=== PATIENT | female | born 1955 | race Caucasian/White ===

== ENCOUNTER 2017-10-25 15:39 | Inpatient (IN) | payer MEDICAID ==
[~2017-10-25] VITALS: Ht 157.5 cm; Wt 52.0 kg
[2017-10-25 17:03] LABS: Basophils # (auto) 0.1 uL; Basophils % (auto) 0.8 % (0.0-2.0); Eosinophils # (auto) 0 uL; Eosinophils % (auto) 0.3 % (0.0-7.0); Hematocrit 44.1 % (36.0-46.0); Hemoglobin 14.5 g/dL (12.2-16.2); Lymphocytes # (auto) 1.7 uL; Mean Corpuscular Hemoglobin 29.3 pg (28.0-32.0); Mean Corpuscular Hgb Conc. 32.9 g/dL (32.0-36.0); Mean Corpuscular Volume 88.8 fL (80.0-100.0); Monocytes # (auto) 0.4 uL; Monocytes % (auto) 5.4 % (0.0-12.0); Neutrophils # (auto) 5.2 uL; Neutrophils % (auto) 70.5 % (37.0-80.0); Nucleated Red Blood Cells % 0.1 %; Platelet Count (auto) 219 10^3/uL (140-450); Red Blood Cells 4.97 10^6/uL (4.0-5.20); Red Cell Distribution Width 14.4 % (11.8-14.3); White Blood Cell 7.3 10^3/uL (4.4-10.8)
[2017-10-25] MEDS ORDERED: NAP500T (17:04)
[2017-10-25] MEDS ORDERED: PROMETHAZINE-DM (17:04)
[2017-10-25] MEDS ORDERED: CIPR-217 (17:04)
[2017-10-25 17:15] LABS: Alanine Aminotransferase 42 U/L (13-56); Albumin 3.5 g/dL (3.4-5.0); Alkaline Phosphatase 82 U/L (45-117); Anion Gap 11 (5-15); Aspartate Aminotransferase 31 U/L (15-37); BUN/Creatinine Ratio 17.6; Bilirubin, Total 0.4 mg/dL (0.2-1.0); Blood Alcohol < 3.0 mg/dL (0-5); Blood Urea Nitrogen 12 mg/dL (7-18); Calcium 8.4 mg/dL (8.5-10.1); Carbon Dioxide 20 mmol/L (21-32); Chloride 110 mmol/L (98-107); GFR African American 113 mL/min; GFR Non-African American 93 mL/min; Glucose 89 mg/dL (74-106); INR 0.95 (0.9-1.15); Partial Thromboplastin Time 25.4 sec (22.64-33.71); Potassium 3.9 mmol/L (3.5-5.1); Prothrombin Time 10.3 sec (9.37-12.3); Sodium 141 mmol/L (136-145); Total Protein 6.6 g/dL (6.4-8.2)
[2017-10-25 17:22] LABS: Alcohol, Urine < 3.0 mg/dL (0-5); Amphetamine Screen, Urine NEGATIVE (NEGATIVE); Barbiturate Scree,Urine NEGATIVE (NEGATIVE); Benzodiazephine Screen, Urine NEGATIVE (NEGATIVE); Cannabinoid Screen, Urine POSITIVE (NEGATIVE); Cocaine Screen, Urine NEGATIVE (NEGATIVE); Opiate Scree,Urine NEGATIVE (NEGATIVE); Phencyclidine Screen, Urine NEGATIVE (NEGATIVE)
[2017-10-25 17:23] LABS: Urine Bacteria NONE SEEN /hpf (None Seen); Urine Blood Negative /uL (Negative); Urine Specific Gravity 1.012 (1.001-1.035); Urine WBC <1 /hpf (0 - 5)
[2017-10-25] MEDS ORDERED: DOCUSATE SOD 100 MG CAP PO PRN (19:00)
[2017-10-25] MEDS ORDERED: ONDANSETRON HCL 4 MG/2 ML VIAL IV PRN (19:00)
[2017-10-25] MEDS ORDERED: cefTRIAXone 1GM/10ml IVPUSH 10 ML IV ONE (19:00)
[2017-10-25] MEDS ORDERED: MORPHINE SULFATE 4 MG/ML SYR/VIAL IV PRN ×2 (19:00)
[2017-10-25] MEDS ORDERED: NITROGLYCERIN 0.4 MG SL TAB SL PRN (19:00)
[2017-10-25] MEDS ORDERED: ASPirin-EC 81 mg tab PO ONE (19:00)
[2017-10-25] MEDS ORDERED: HYDROcodone-ACET 5/325MG TAB PO PRN (19:00)
[2017-10-25] MEDS ORDERED: ACETAMINOPHEN 325 MG TAB PO PRN (19:00)
[2017-10-25] MEDS ORDERED: NAPROXEN 500 MG TAB PO PRN (19:00)
[2017-10-25 22:00] VITALS: BP 146/86
[2017-10-25] MEDS: ASCORBIC ACID 500 MG TAB PO SCH (22:10)
[2017-10-25] MEDS: SODIUM CHLOR 0.9% PF (SALINE LOCK) 10ML VIAL IV SCH (22:10)
[2017-10-25] MEDS: FAMOTIDINE 20 MG TAB PO SCH (22:10)
[2017-10-25] MEDS: ATORVASTATIN 20 MG TAB PO SCH (22:10)
[2017-10-25 23:12] VITALS: BP 146/86
[2017-10-26 05:15] VITALS: BP 133/87
[2017-10-26] MEDS: SODIUM CHLOR 0.9% PF (SALINE LOCK) 10ML VIAL IV SCH ×3 (05:42→21:48)
[2017-10-26 07:26] LABS: Basophils # (auto) 0.1 uL; Basophils % (auto) 0.8 % (0.0-2.0); Eosinophils # (auto) 0.1 uL; Eosinophils % (auto) 0.9 % (0.0-7.0); Hematocrit 43.2 % (36.0-46.0); Hemoglobin 14.3 g/dL (12.2-16.2); Lymphocytes # (auto) 2.1 uL; Lymphocytes % (auto) 28.2 % (10.0-50.0); Mean Corpuscular Hemoglobin 29.4 pg (28.0-32.0); Mean Corpuscular Hgb Conc. 33.1 g/dL (32.0-36.0); Monocytes # (auto) 0.5 uL; Monocytes % (auto) 6.9 % (0.0-12.0); Neutrophils # (auto) 4.7 uL; Neutrophils % (auto) 63.2 % (37.0-80.0); Nucleated Red Blood Cells % 0.1 %; Platelet Count (auto) 206 10^3/uL (140-450); Red Blood Cells 4.86 10^6/uL (4.0-5.20); Red Cell Distribution Width 14.4 % (11.8-14.3); White Blood Cell 7.4 10^3/uL (4.4-10.8)
[2017-10-26 07:38] LABS: Albumin 3.3 g/dL (3.4-5.0); BUN/Creatinine Ratio 14.8; Calcium 8.6 mg/dL (8.5-10.1); Potassium 3.8 mmol/L (3.5-5.1)
[2017-10-26 07:42] LABS: Bilirubin, Total 0.5 mg/dL (0.2-1.0); Total Protein 6.2 g/dL (6.4-8.2)
[2017-10-26 09:00] VITALS: BP 144/93
[2017-10-26] MEDS ORDERED: cefTRIAXone 1GM/10ml IVPUSH 10 ML IV SCH (09:00)
[2017-10-26] MEDS: ZINC SULFATE 220 MG CAP PO SCH (10:15)
[2017-10-26] MEDS: FAMOTIDINE 20 MG TAB PO SCH ×2 (10:15→21:48)
[2017-10-26] MEDS: MULTIPLE VITAMIN TAB PO SCH (10:15)
[2017-10-26] MEDS: ASCORBIC ACID 500 MG TAB PO SCH ×2 (10:16→21:48)
[2017-10-26] MEDS: ASPirin-EC 81 mg tab PO SCH (10:16)
[2017-10-26 13:00] VITALS: BP 134/76
[2017-10-26] MEDS ORDERED: LORazepam 2MG/ML-1ML VIAL IV PRN (16:30)
[2017-10-26 17:00] VITALS: BP 138/94
[2017-10-26] MEDS: ATORVASTATIN 20 MG TAB PO SCH (21:48)
[2017-10-26 22:00] VITALS: BP 133/53
[2017-10-27 05:00] VITALS: BP 143/84
[2017-10-27] MEDS: SODIUM CHLOR 0.9% PF (SALINE LOCK) 10ML VIAL IV SCH ×3 (06:02→22:19)
[2017-10-27 06:33] LABS: Basophils # (auto) 0.1 uL; Basophils % (auto) 0.7 % (0.0-2.0); Eosinophils # (auto) 0.1 uL; Eosinophils % (auto) 1.2 % (0.0-7.0); Hematocrit 45.8 % (36.0-46.0); Hemoglobin 15.3 g/dL (12.2-16.2); Lymphocytes # (auto) 1.8 uL; Lymphocytes % (auto) 25.7 % (10.0-50.0); Mean Corpuscular Hemoglobin 29.6 pg (28.0-32.0); Mean Corpuscular Hgb Conc. 33.5 g/dL (32.0-36.0); Mean Corpuscular Volume 88.4 fL (80.0-100.0); Monocytes # (auto) 0.6 uL; Monocytes % (auto) 8.5 % (0.0-12.0); Neutrophils # (auto) 4.5 uL; Neutrophils % (auto) 63.9 % (37.0-80.0); Nucleated Red Blood Cells % 0.1 %; Platelet Count (auto) 227 10^3/uL (140-450); Red Blood Cells 5.18 10^6/uL (4.0-5.20); Red Cell Distribution Width 14.5 % (11.8-14.3); White Blood Cell 7.1 10^3/uL (4.4-10.8)
[2017-10-27 06:45] LABS: Calcium 8.9 mg/dL (8.5-10.1); Potassium 4.1 mmol/L (3.5-5.1)
[2017-10-27 06:46] LABS: BUN/Creatinine Ratio 17.5
[2017-10-27 09:00] VITALS: BP 116/71
[2017-10-27] MEDS: ASPirin-EC 81 mg tab PO SCH (09:55)
[2017-10-27] MEDS: FAMOTIDINE 20 MG TAB PO SCH ×2 (09:55→22:19)
[2017-10-27] MEDS: ASCORBIC ACID 500 MG TAB PO SCH ×2 (09:55→22:19)
[2017-10-27] MEDS: ZINC SULFATE 220 MG CAP PO SCH (09:55)
[2017-10-27] MEDS: MULTIPLE VITAMIN TAB PO SCH (09:55)
[2017-10-27 13:00] VITALS: BP 124/87
[2017-10-27 17:00] VITALS: BP 105/83
[2017-10-27] MEDS: BOOST PLUS 8 ounce PO SCH (18:38)
[2017-10-27 22:00] VITALS: BP 119/70
[2017-10-27] MEDS: ATORVASTATIN 20 MG TAB PO SCH (22:19)
[2017-10-28 04:55] VITALS: BP 116/53
[2017-10-28] MEDS: SODIUM CHLOR 0.9% PF (SALINE LOCK) 10ML VIAL IV SCH ×3 (06:21→21:04)
[2017-10-28 08:00] VITALS: BP 120/92
[2017-10-28] MEDS: BOOST PLUS 8 ounce PO SCH ×3 (08:00→18:00)
[2017-10-28 08:28] LABS: Basophils # (auto) 0.1 uL; Basophils % (auto) 1.2 % (0.0-2.0); Eosinophils # (auto) 0.1 uL; Eosinophils % (auto) 0.8 % (0.0-7.0); Hematocrit 48.4 % (36.0-46.0); Hemoglobin 16.1 g/dL (12.2-16.2); Lymphocytes # (auto) 1.8 uL; Lymphocytes % (auto) 21.5 % (10.0-50.0); Mean Corpuscular Hemoglobin 29.6 pg (28.0-32.0); Mean Corpuscular Hgb Conc. 33.2 g/dL (32.0-36.0); Mean Corpuscular Volume 89.2 fL (80.0-100.0); Monocytes # (auto) 0.7 uL; Monocytes % (auto) 7.8 % (0.0-12.0); Neutrophils # (auto) 5.8 uL; Neutrophils % (auto) 68.7 % (37.0-80.0); Nucleated Red Blood Cells % 0.1 %; Platelet Count (auto) 228 10^3/uL (140-450); Red Blood Cells 5.43 10^6/uL (4.0-5.20); Red Cell Distribution Width 14.2 % (11.8-14.3); White Blood Cell 8.4 10^3/uL (4.4-10.8)
[2017-10-28 08:44] LABS: BUN/Creatinine Ratio 14.6; Calcium 8.8 mg/dL (8.5-10.1); Potassium 4.8 mmol/L (3.5-5.1)
[2017-10-28 09:00] VITALS: BP 120/92
[2017-10-28] MEDS: FAMOTIDINE 20 MG TAB PO SCH ×2 (10:00→21:04)
[2017-10-28] MEDS: ZINC SULFATE 220 MG CAP PO SCH (10:33)
[2017-10-28] MEDS: ASPirin-EC 81 mg tab PO SCH (10:34)
[2017-10-28] MEDS: MULTIPLE VITAMIN TAB PO SCH (10:34)
[2017-10-28] MEDS: ASCORBIC ACID 500 MG TAB PO SCH ×2 (10:34→21:04)
[2017-10-28 13:00] VITALS: BP 132/73
[2017-10-28 16:55] VITALS: BP 137/76
[2017-10-28] MEDS: ATORVASTATIN 20 MG TAB PO SCH (21:04)
[2017-10-28 22:00] VITALS: BP 131/89
[2017-10-29 05:52] VITALS: BP 131/75
[2017-10-29] MEDS: SODIUM CHLOR 0.9% PF (SALINE LOCK) 10ML VIAL IV SCH (06:31)
[2017-10-29 07:10] LABS: Cholesterol 208 mg/dL (< 200); HDL Cholesterol 50 mg/dL (40-59); LDL Cholesterol 138 mg/dL (< 100); Triglycerides 113 mg/dL (< 150)
[2017-10-29 09:00] VITALS: BP 131/79
[2017-10-29] MEDS: FAMOTIDINE 20 MG TAB PO SCH (10:00)
[2017-10-29] MEDS: MULTIPLE VITAMIN TAB PO SCH (10:11)
[2017-10-29] MEDS: ASCORBIC ACID 500 MG TAB PO SCH (10:11)
[2017-10-29] MEDS: ASPirin-EC 81 mg tab PO SCH (10:11)
[2017-10-29] MEDS: BOOST PLUS 8 ounce PO SCH (10:11)
[2017-10-29] MEDS: ZINC SULFATE 220 MG CAP PO SCH (10:11)
[2017-10-29] MEDS ORDERED: ATO40T PO (11:14)
[2017-10-29] MEDS ORDERED: ASP81EC PO (11:14)
[2017-10-29 13:00] VITALS: BP 136/60
== END 2017-10-29 14:55 | disposition home or self-care (01) | DRG 45 ==
LOC: ER 15:39 → EDBD 15:39 → TELE 15:40 → TELE-CENTR 21:31
PROVIDERS: ADMIT Internal Medicine; ATTEND Internal Medicine
DX: I63.9 Cerebral infarction, unspecified (principal); G92 Toxic encephalopathy; E44.0 Moderate protein-calorie malnutrition; E83.51 Hypocalcemia; G40.209 Localization-related (focal) (partial) symptomatic epilepsy and epileptic syndromes with complex partial seizures, not intractable, without status epilepticus; G45.9 Transient cerebral ischemic attack, unspecified; N39.0 Urinary tract infection, site not specified; G45.4 Transient global amnesia; K59.00 Constipation, unspecified; S00.531A Contusion of lip, initial encounter; E78.5 Hyperlipidemia, unspecified; F12.90 Cannabis use, unspecified, uncomplicated; S00.11XA Contusion of right eyelid and periocular area, initial encounter; Z79.899 Other long term (current) drug therapy; Z82.49 Family history of ischemic heart disease and other diseases of the circulatory system; Z82.5 Family history of asthma and other chronic lower respiratory diseases; Z87.11 Personal history of peptic ulcer disease; Z68.21 Body mass index [BMI] 21.0-21.9, adult
CPT/HCPCS: 36415; 51702; 70450; 70486; 70551; 71045; 80048; 80053; 80061; 80307; 80320; 81001; 83605; 83880; 84443; 84484; 85025; 85610; 85730; 87040; 87086; 87493; 92610; 93005; 93306; 93886; 95819; 96374